=== PATIENT | female | born 1980 | race Caucasian/White ===

== ENCOUNTER 2017-01-12 11:04 | Emergency (ER) | payer SELFPAY | END 2017-01-12 11:38 | disposition home or self-care (01) | LOC: NAV ERS 11:04 | DX: H65.91 Unspecified nonsuppurative otitis media, right ear (principal); D64.9 Anemia, unspecified; F17.210 Nicotine dependence, cigarettes, uncomplicated | CPT/HCPCS: 99282 ==

== ENCOUNTER 2017-05-11 12:01 | Emergency (ER) | payer SELFPAY ==
[2017-05-11] MEDS ORDERED: Acetaminophen 500 MG TAB ONE (12:38)
--- NOTE | 2017-05-11 13:15 | RAD ---
2 VIEWS CHEST: Date: 05/11/17 COMPARISON: None. HISTORY: Cough. FINDINGS: Lungs are clear. Heart and mediastinal contours are grossly unremarkable. No acute osseous abnormalit y. IMPRESSION: No acute findings. POS: [facility]
== END 2017-05-11 13:47 | disposition home or self-care (01) ==
LOC: NAV ERS 12:01
DX: J11.1 Influenza due to unidentified influenza virus with other respiratory manifestations (principal); D64.9 Anemia, unspecified; F17.210 Nicotine dependence, cigarettes, uncomplicated; F41.9 Anxiety disorder, unspecified; F32.9 Major depressive disorder, single episode, unspecified
CPT/HCPCS: 71046

== ENCOUNTER 2017-11-19 19:46 | Emergency (ER) | payer SELFPAY ==
[2017-11-19 20:37] LABS: Bilirubin Negative (Negative); Blood, Urine Negative (Negative); Clarity Clear (Clear); Glucose, Urine (Dipstick) Negative (Negative); Leukocyte Negative (Negative); Nitrite Negative (Negative); Protein, Urine (Dipstick) Negative (Neg-Trace); Specific Gravity, Urine 1.005 (1.005-1.030); Urobilinogen 0.2 mg/dL (0.2-1.0)
== END 2017-11-19 20:56 | disposition home or self-care (01) ==
LOC: NAV ERS 19:46
DX: M54.5 Low back pain (principal); R11.2 Nausea with vomiting, unspecified; D64.9 Anemia, unspecified; F32.9 Major depressive disorder, single episode, unspecified; F17.210 Nicotine dependence, cigarettes, uncomplicated
CPT/HCPCS: 81003; 87077; 87086; 87186; 99283

== ENCOUNTER 2018-12-05 20:12 | Emergency (ER) | payer SELFPAY ==
[2018-12-05 20:27] LABS: Bilirubin Negative (Negative); Blood, Urine Negative (Negative); Clarity Clear (Clear); Glucose, Urine (Dipstick) Negative (Negative); Leukocyte Negative (Negative); Nitrite Negative (Negative); Protein, Urine (Dipstick) Negative (Neg-Trace); Urobilinogen 0.2 mg/dL (Less than 2)
[2018-12-05] MEDS ORDERED: Sodium Chloride 0.9% 1,000 ML ONE (20:42)
[2018-12-05] MEDS ORDERED: Ondansetron PF 4 MG/2 ML Vial ONE (20:42)
[2018-12-05] MEDS ORDERED: Pantoprazole 40 MG VIAL ONE (20:42)
[2018-12-05 20:43] LABS: Pregnancy Test - Urine (BHCG) Negative (Negative); Pregu Control Background? CLEAR/WHITE (CLR/WHITE); Pregu Control Bar Appear? YES (CONTROL BAR); Specific Gravity 1.003 (1.002-1.036)
[2018-12-05] MEDS ORDERED: Acetaminophen 500 MG TAB ONE (20:43)
[2018-12-05 21:06] LABS: #Basophils 0.1 thou/uL (0.0-0.2); #Eosinphils 0.4 thou/uL (0.0-0.7); #Lymphocytes 3.5 thou/uL (1.20-3.40); #Monocytes 0.7 thou/uL (0.11-0.59); #Neutrophils 4.9 thou/uL (1.40-6.50); %Basophils 1.5 % (0.0-1.0); %Eosinophils 4.3 % (0.0-10.0); %Lymphocytes 36.4 % (21.0-51.0); %Monocytes 6.8 % (0.0-10.0); Hemoglobin 13.5 g/dL (12.0-16.0); Mean Corpuscular HGB CONC 32.8 g/dL (32.0-36.0); Mean Corpuscular Hemoglobin 30.7 pg (27.0-31.0); Mean Corpuscular Volume 93.5 fL (78.0-98.0); Mean Platelet Volume 7.8 fL (7.4-10.4); Platelet Count 262 thou/uL (130-400); RBC Distribution Width 11.1 % (11.5-14.5); Red Blood Cell (RBC) Count 4.39 mill/uL (4.20-5.40); White Blood Cell (WBC) Count 9.6 thou/uL (4.8-10.8)
[2018-12-05 21:17] LABS: ALT (SGPT) 20 U/L (8-55); AST (SGOT) 15 U/L (5-34); Albumin 4.6 g/dL (3.5-5.0); Alkaline Phosphatase 58 U/L (40-150); Anion Gap 15 mmol/L (10-20); BUN (Urea Nitrogen) 13 mg/dL (7.0-18.7); Bilirubin, Total 0.3 mg/dL (0.2-1.2); Calc. Creatinine Clearance 0 mL/min (70-130); Calcium 9.7 mg/dL (7.8-10.44); Carbon Dioxide 23 mmol/L (22-29); Chloride 103 mmol/L (98-107); Estimated GFR-MDRD 82; Globulin 2.8 g/dL (2.4-3.5); Glucose 90 mg/dL (70-105); Lipase 31 U/L (8-78); Potassium 3.6 mmol/L (3.5-5.1); Protein, Total 7.4 g/dL (6.0-8.3); Sodium 137 mmol/L (136-145)
[2018-12-07 23:02] LABS: Chlam.trachomatis by PCR,Urine Not Detected (NotDetected)
== END 2018-12-05 22:07 | disposition home or self-care (01) ==
LOC: NAV ERS 20:12
DX: N83.209 Unspecified ovarian cyst, unspecified side (principal); D64.9 Anemia, unspecified; F41.9 Anxiety disorder, unspecified; F32.9 Major depressive disorder, single episode, unspecified; F17.210 Nicotine dependence, cigarettes, uncomplicated
CPT/HCPCS: 80053; 81003; 81025; 83690; 85025; 87491; 87591; 96361; 96374; C9113; J2405; J7050

== ENCOUNTER 2022-08-16 15:09 | Emergency (ER) | payer BC, SELFPAY ==
[2022-08-16] MEDS ORDERED: Sulfameth/Trimethoprim DS 800-160mg TAB ONE (16:36)
== END 2022-08-16 16:43 | disposition home or self-care (01) ==
LOC: NAV ERS 15:09
DX: S20.161A Insect bite (nonvenomous) of breast, right breast, initial encounter (principal); L08.9 Local infection of the skin and subcutaneous tissue, unspecified; W57.XXXA Bitten or stung by nonvenomous insect and other nonvenomous arthropods, initial encounter
CPT/HCPCS: 99282

== ENCOUNTER 2023-03-25 09:58 | Emergency (ER) | payer BC ==
[2023-03-25] MEDS ORDERED: Ibuprofen 200 MG TAB ONE (10:36)
== END 2023-03-25 11:20 | disposition home or self-care (01) ==
LOC: NAV ERS 09:58
DX: J10.1 Influenza due to other identified influenza virus with other respiratory manifestations (principal); I10 Essential (primary) hypertension
CPT/HCPCS: 71046